=== PATIENT | female | born 1945 | race Caucasian/White ===

== ENCOUNTER → 2016-10-12 | Outpatient (CLI) | payer OTHER, MEDICARE ==
--- NOTE | 2016-10-12 12:06 | MA ---
Screening Digital Mammogram With iCAD Analysis Clinical Indications: Routine screening. Patient has a history of right breast cancer treated with tae mpectomy. A sister was diagnosed with breast cancer in her 60s. Technique: Standard cephalocaudal and mediolateral oblique projections of the left breast were obtain ed. This examination was processed by the iCAD computer aided detection system. Comparison: September 2015, August 2014, July 2013, June 2012, June 2011, April 2010, February 2009. Breast density: Type C; Heterogeneously dense. Findings: CAD was reviewed. No masses, suspicious calcifications or other signs of malignancy are id entified. There has been no significant change in the appearance of the left breast. Impression: Negative mammogram. BI-RADS 1. Recommendation: Routine mammographic screening in one year as long as physical examination is negativ [facility]. Dense breast parenchyma diminishes mammographic sensitivity. Negative mammography should not preclude additional workup of a clinically suspicious finding. The patient's information is entered into a reminder system with a target due date for her next mammo gram.
== END ==
LOC: FIMAGING 08:49
DX: Z12.31 Encounter for screening mammogram for malignant neoplasm of breast (principal); Z85.3 Personal history of malignant neoplasm of breast; Z80.3 Family history of malignant neoplasm of breast; Z90.11 Acquired absence of right breast and nipple

== ENCOUNTER → 2017-11-19 | Outpatient (CLI) | payer OTHER, MEDICARE | LOC: FIMAGING 15:05 | PROVIDERS: ATTEND Internal Medicine | DX: Z12.31 Encounter for screening mammogram for malignant neoplasm of breast (principal); Z85.3 Personal history of malignant neoplasm of breast; Z80.3 Family history of malignant neoplasm of breast; Z90.11 Acquired absence of right breast and nipple ==

== ENCOUNTER → 2018-12-20 | Outpatient (CLI) | payer OTHER, MEDICARE | LOC: FIMAGING 14:53 | PROVIDERS: ATTEND Internal Medicine | DX: Z12.31 Encounter for screening mammogram for malignant neoplasm of breast (principal); Z85.3 Personal history of malignant neoplasm of breast; Z90.11 Acquired absence of right breast and nipple; Z80.3 Family history of malignant neoplasm of breast ==

== ENCOUNTER → 2019-02-23 | Outpatient (CLI) | payer OTHER, MEDICARE | LOC: BMCIMAGING 15:35 ==